=== PATIENT | male | born 1970 | race Two or more races ===

== ENCOUNTER 2019-04-29 12:37 | Emergency (ER) | payer SELFPAY ==
[~2019-04-29] VITALS: Ht 165.1 cm; Wt 106.6 kg
[2019-04-29] MEDS ORDERED: ACETAMINOPHEN 500 MG TABLET PO STA (13:48)
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
[2019-04-29 14:24] VITALS: BP 163/98
== END 2019-04-29 14:25 | disposition home or self-care (01) ==
LOC: ER 12:37
DX: Z77.098 Contact with and (suspected) exposure to other hazardous, chiefly nonmedicinal, chemicals (principal); R11.2 Nausea with vomiting, unspecified; I10 Essential (primary) hypertension; E03.9 Hypothyroidism, unspecified
CPT/HCPCS: 99283